=== PATIENT | female | born 1940 | race Caucasian/White ===

== ENCOUNTER 2016-07-28 11:26 | Emergency (ER) | payer MEDICARE ==
[~2016-07-28 11:26] MED LIST: ALEN70TA5 PO; ASPI-482 PO; ASPI81TA9 PO; ATOR20TA PO; ATOR20TA58 PO; CARV3.12 PO; CHOL10003 PO; CHOL2000 PO; CLOP75TA PO; DONE10TA34 PO; DONE10TA7 PO; DULO60CA6 PO; FAMO-63 PO; FAMO20TA5 PO; FERR325T58 PO; LISI2.5T PO; MEMA10TA PO; MEMA28CA PO; METF500T4 PO; MULT-121 PO; MULT-208 PO; MULT1TAB52 PO; OXYC15TA PO
[2016-07-28 12:06] VITALS: BP 146/83
--- NOTE | 2016-07-28 12:21 | PHYS DOC ---
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 States it was not there yesterday. She does not remember trauma. States it is asymptomatic at rest, but it is tender to the touch with achy pain. Their main concern is to make sure it is not shingles. She denies fever or chills, nausea or vomiting, numbness, tingling, weakness. She also notes chronic, unchanged sciatic pain in the left lower extremity that she is just mentioning and does not expect treatment or workup. Review of Systems Review of Systems Constitutional: Denies fever or chills [] Eyes: Denies change in visual acuity, redness, or eye pain [] HENT: Denies nasal congestion or sore throat [] Respiratory: Denies cough or shortness of breath [] Cardiovascular: No additional information not addressed in HPI [] GI: Denies abdominal pain, nausea, vomiting, bloody stools or diarrhea [] : Denies dysuria or hematuria [] Musculoskeletal: Denies back pain or joint pain [] Integument: Denies skin lesions [] Neurologic: Denies headache, focal weakness or sensory changes [] Endocrine: Denies polyuria or polydipsia [] Allergies Allergies Allergies Coded Allergies Type Severity Reaction Last Updated Verified aspirin Adverse Reaction Intermediate Nausea 12/05/15 Yes Physical Exam Physical Exam Constitutional: Well developed, well nourished, no acute distress, non-toxic appearance. [] HENT: Normocephalic, atraumatic, bilateral external ears normal, oropharynx moist, nose normal. [] Eyes: PERRLA, EOMI. [] Neck: Normal range of motion, supple. [] Cardiovascular:Heart rate regular rhythm [] Lungs & Thorax: Bilateral breath sounds clear to auscultation [] Abdomen: soft, no tenderness. [] Skin: Warm, dry, no erythema. Small area of right inner thigh just proximal to knee with cluster of macular lesions approx 2mm each, blanching, total area approx 10mm, slightly tender with no induration/crepitance/fluctuance/warmth [] Back: Normal ROM. [] Extremities: ROM intact, no edema. [] Neurologic: Alert and oriented X3, normal motor function, normal sensory function, no focal deficits noted. [] Psychologic: Affect normal, judgement normal, mood normal. [] Current Patient Data Vital Signs Vital Signs Date Time Temp Pulse Resp B/P Pulse Ox O2 Delivery O2 Flow Rate FiO2 07/28/16 12:06 98.3 80 18 100 Room Air 98.3 Course & Med Decision Making Course & Med Decision Making Discussed symptomatic care and encouraged PCP follow up. Return precautions given. She and understand and agree with plan. Dragon Disclaimer Dragon Disclaimer This electronic medical record was generated, in whole or in part, using a voice recognition dictation system. Departure Departure Impression: Primary Impression: Rash and nonspecific skin eruption Disposition: 01 HOME, SELF-CARE Condition: STABLE Referrals: LILY SAM MD (PCP) Patient Instructions: Rash, [id number] Additional Instructions: Follow up with your primary care doctor. Return for any concerns. Sage PRINGLE MD Jul 28, 2016 12:21
== END 2016-07-28 12:35 | disposition home or self-care (01) ==
LOC: ER 11:26
DX: R21 Rash and other nonspecific skin eruption (principal); I10 Essential (primary) hypertension; Z88.6 Allergy status to analgesic agent
CPT/HCPCS: 99281

== ENCOUNTER → 2016-11-22 | Day surgery (SDC) | payer MEDICARE ==
[~2016-11-22] MED LIST changes: +ASPI-612 PO; -ASPI81TA9 PO; -DONE10TA34 PO; +DONE10TA61 PO; +FERR-26 PO; +GLYCOPYRROLATE 1 MG/5 ML VIAL. ONE; +HYDROmorphone 2 MG/ML VIAL IV PRN; +IV RINGERS,LACTATED 1000ML 1,000 ML IV SCH; +LIDOCAINE 1% 1 ML SYRINGE. ID PRN; +LIDOCAINE 2% PF Vial for OR 5 ML VIAL. ONE; +MORPHINE SULFATE 2 MG/ML DISP.SYRIN. IV PRN; +ONDANSETRON PF 4 MG/2 ML VIAL. IV PRN; +PANT40TA5 PO; +PHENYLEPHRINE in 0.9% NACL PF 1 MG/10 ML DISP.SYRIN. IV ONE; +PROCHLORPERAZINE 10 MG/2 ML VIAL. IV PRN; +PROPOFOL 40 ML IV ONE; +fentaNYL PF VIAL 100 MCG/2 ML VIAL IV PRN
--- NOTE | 2016-11-22 12:38 | PDOC2 ---
GI CONSULT Reason For Consult: CRC screening HPI: HPI: 76 y/o female w/ h/o colon cancer diagnosed in 2016; s/p right colon resection in 11/2015. She presents for 1 year screening colonoscopy as recommended. PMH: PMH: anemia, arthritis, CAD s/p angioplasty/stent, DM, HLD, CO, colon cancer, tonsillectomy, laparoscopic assisted right colon resection with primary anastomosis, repair of cholecystoduodenal fistula, partial cholecystectomy FH: Family History: Cancer, DM, Hypertension Social History: ALCOHOL: none Drugs: None ROS: GEN: Denies fevers, chills, sweats HEENT: Denies blurred vision, sore throat CV: Denies chest pain RESP: Denies shortness of air, cough GI: Per HPI : Denies hematuria, dysuria ENDO: Denies weight changes NEURO: Denies confusion, dizziness MSK: Denies weakness, joint pain/swelling SKIN: Denies jaundice, pruritus Vitals: Vitals: Vital Signs Date Time Temp Pulse Resp B/P (MAP) Pulse Ox O2 Delivery O2 Flow Rate FiO2 11/22/16 11:48 98.8 77 16 99 98.8 Allergies: Coded Allergies: aspirin (Verified Adverse Reaction, Intermediate, Nausea, 11/22/16) Medications: Current Medications Medications (Trade) Dose Ordered Sig/Balaji Route PRN Reason Start Time Stop Time Status Last Admin Dose Admin Ringer's Solution 1,000 ml @ 30 mls/hr Q24H IV 11/22/16 07:00 11/22/16 18:59 11/22/16 11:56 Please see EMR. PE: GEN: NAD HEENT: Atraumatic, PERRL LUNGS: CTAB HEART: S1S2 ABD: NABS, S/ND/NT SKIN: No rashes, no jaundice NEURO/PSYCH: A & O 3 A/P: A/P: CRC screening, h/o colon cancer s/p resection 2016 -- Proceed w/ screening colonoscopy. Additional recommendations pending findings. AKI LENNON Nov 22, 2016 12:38
[2016-11-22 13:15] VITALS: BP 127/84
== END | disposition home or self-care (01) ==
LOC: ENDOS 10:57
PROVIDERS: ATTEND Internal Medicine Gastroenterology
DX: Z08 Encounter for follow-up examination after completed treatment for malignant neoplasm (principal); Z85.038 Personal history of other malignant neoplasm of large intestine; K64.0 First degree hemorrhoids; K57.30 Diverticulosis of large intestine without perforation or abscess without bleeding; E78.00 Pure hypercholesterolemia, unspecified; Z86.69 Personal history of other diseases of the nervous system and sense organs; I25.10 Atherosclerotic heart disease of native coronary artery without angina pectoris; I10 Essential (primary) hypertension; E66.9 Obesity, unspecified; Z68.45 Body mass index [BMI] 70 or greater, adult; K21.9 Gastro-esophageal reflux disease without esophagitis; Z87.39 Personal history of other diseases of the musculoskeletal system and connective tissue; M19.90 Unspecified osteoarthritis, unspecified site; Z86.39 Personal history of other endocrine, nutritional and metabolic disease; E11.9 Type 2 diabetes mellitus without complications; D64.9 Anemia, unspecified; Z79.82 Long term (current) use of aspirin
CPT/HCPCS: 45378; J2370; J2704; J3490

== ENCOUNTER → 2017-04-05 | Outpatient (CLI) | payer MEDICARE ==
[2016-11-22 13:15] VITALS: BP 127/84
[~2017-04-05] MED LIST changes: -GLYCOPYRROLATE 1 MG/5 ML VIAL. ONE; -HYDROmorphone 2 MG/ML VIAL IV PRN; -IV RINGERS,LACTATED 1000ML 1,000 ML IV SCH; -LIDOCAINE 1% 1 ML SYRINGE. ID PRN; -LIDOCAINE 2% PF Vial for OR 5 ML VIAL. ONE; -MORPHINE SULFATE 2 MG/ML DISP.SYRIN. IV PRN; -ONDANSETRON PF 4 MG/2 ML VIAL. IV PRN; -PHENYLEPHRINE in 0.9% NACL PF 1 MG/10 ML DISP.SYRIN. IV ONE; -PROCHLORPERAZINE 10 MG/2 ML VIAL. IV PRN; -PROPOFOL 40 ML IV ONE; -fentaNYL PF VIAL 100 MCG/2 ML VIAL IV PRN
--- NOTE | 2017-04-05 14:33 | CARD ---
APPROVED REPORT EXAM: Two-dimensional and M-mode echocardiogram with Doppler and color Doppler. Other Information Quality : Good INDICATION Cardiac Disease: CAD 2D DIMENSIONS Left Atrium(2D)4.5 (1.6-4.0cm)IVSd0.8 (0.7-1.1cm) Aortic Root(2D)2.7 (2.0-3.7cm)LVDd4.5 (3.9-5.9cm) LVOT Diameter2.0 (1.8-2.4cm)PWd0.8 (0.7-1.1cm) LVDs2.2 (2.5-4.0cm)FS (%) 30.0 % SV74.2 mlLVEF(%)60.0 (>50%) Aortic Valve AoV Peak Rajan.143.6cm/sAoV VTI30.2cm AO Peak GR.8.2mmHgLVOT Peak Rajan.129.3cm/s LVOT VTI 29.94cmAO Mean GR.4mmHg RA (VMAX)2.17fl5PMK (VTI)3.18cm2 Mitral Valve MV E Anugfyco71.7cm/sMV DECEL RSSM682ou MV A Wdombrrf11.1cm/sMV UBM90to E/A Ratio0.9MVA (PHT)3.10cm2 TDI E/Lateral E'12.0 Pulmonary Vein S1 Ikjvpipq34.1cm/sD2 Niynswrx35.1cm/s LEFT VENTRICLE The left ventricle is normal size. There is normal left ventricular wall thickness. The left ventricu lar systolic function is normal and the ejection fraction is within normal range. The Ejection Fracti on is 55-60%. There is normal LV segmental wall motion. Transmitral Doppler flow pattern is Grade I-a bnormal relaxation pattern. RIGHT VENTRICLE The right ventricle is normal size. The right ventricular systolic function is normal. ATRIA The left atrium is mildly dilated. The right atrium size is normal. The interatrial septum is intact with no evidence for an atrial septal defect or patent foramen ovale as noted on 2-D or Doppler imagi ng. AORTIC VALVE The aortic valve is calcified but opens well. Doppler and Color Flow revealed trace aortic regurgitat ion. There is no significant aortic valvular stenosis. MITRAL VALVE The mitral valve is normal in structure and function. There is no evidence of mitral valve prolapse. There is no mitral valve stenosis. Doppler and Color-flow revealed trace to mild mitral regurgitation . TRICUSPID VALVE The tricuspid valve is normal in structure and function. Doppler and Color Flow revealed no tricuspid valve regurgitation noted. There is no tricuspid valve stenosis. PULMONIC VALVE The pulmonary valve is normal in structure and function. Doppler and Color Flow revealed no pulmonic valvular regurgitation. There is no pulmonic valvular stenosis. GREAT VESSELS The aortic root is normal in size. The ascending aorta is normal in size. The IVC is normal in size a nd collapses >50% with inspiration. PERICARDIAL EFFUSION There is no evidence of significant pericardial effusion. Critical Notification Critical Value: No <Conclusion> The left ventricle is normal size. The left ventricular systolic function is normal and the ejection fraction is within normal range. The Ejection Fraction is 55-60%. There is no significant aortic valvular stenosis. Doppler and Color Flow revealed trace aortic regurgitation. Doppler and Color-flow revealed trace to mild mitral regurgitation. Doppler and Color Flow revealed no tricuspid valve regurgitation noted.
== END | disposition home or self-care (01) ==
LOC: ECHO 12:37
PROVIDERS: ATTEND Internal Medicine Cardiovascular Disease
DX: I25.10 Atherosclerotic heart disease of native coronary artery without angina pectoris (principal); I34.0 Nonrheumatic mitral (valve) insufficiency
CPT/HCPCS: 93306

== ENCOUNTER → 2018-10-29 | Outpatient (CLI) | payer MEDICARE ==
[2016-11-22 13:15] VITALS: BP 127/84
[~2018-10-29] MED LIST changes: -ALEN70TA5 PO; +ALEN70TA6 PO; -FERR-26 PO; +FERR325T14 PO; +METF500T16 PO; -METF500T4 PO; +REGADENOSON 0.4 MG/5 ML DISP.SYRIN. IV ONE
--- NOTE | 2018-10-29 11:05 | CARD ---
MR#: [id number] Date of Study: 10/29/2018 Ordering Physician: BAKARI EPPS, Referring Physician: BAKARI EPPS Tech: Estefany Melchor RDCS APPROVED REPORT EXAM: Two-dimensional and M-mode echocardiogram with Doppler and color Doppler. Other Information Quality : AverageHR: 66bpm Rhythm : NSR INDICATION CAD 2D DIMENSIONS RVDd2.9 (2.9-3.5cm)Left Atrium(2D)4.0 (1.6-4.0cm) IVSd1.1 (0.7-1.1cm)Aortic Root(2D)2.9 (2.0-3.7cm) LVDd3.0 (3.9-5.9cm)LVOT Diameter1.8 (1.8-2.4cm) PWd1.0 (0.7-1.1cm)LVDs2.0 (2.5-4.0cm) FS (%) 34.1 %SV21.9 ml LVEF(%)64.7 (>50%) M-Mode DIMENSIONS Left Atrium(MM)4.03 (2.5-4.0cm)Aortic Root3.47 (2.2-3.7cm) Aortic Valve AoV Peak Rajan.116.3cm/sAoV VTI29.1cm AO Peak GR.5.4mmHgLVOT Peak Rajan.116.7cm/s AO Mean GR.3mmHgAVA (VMAX)2.58cm2 RA (VTI)2.60cm2 Mitral Valve MV E Yhonaaek98.2cm/sMV DECEL HVUV780hu MV A Kmwydepq39.3cm/sE/A Ratio0.7 Pulmonary Valve PV Peak Ghhmjpvq66.0cm/s LEFT VENTRICLE The left ventricle cavity is small. There is normal left ventricular wall thickness. The left ventric ular systolic function is normal. The Ejection Fraction is 60-65%. There is normal LV segmental wall motion. Transmitral Doppler flow pattern is Grade I-abnormal relaxation pattern. RIGHT VENTRICLE The right ventricle is normal size. There is normal right ventricular wall thickness. The right ventr icular systolic function is normal. ATRIA The left atrium is mildly dilated. The right atrium size is normal. The interatrial septum is intact with no evidence for an atrial septal defect or patent foramen ovale as noted on 2-D or Doppler imagi ng. AORTIC VALVE The aortic valve is normal in structure and function. The aortic valve is trileaflet. Doppler and Col or Flow revealed no significant aortic regurgitation. There is no significant aortic valvular stenosi s. MITRAL VALVE The mitral valve is normal in structure and function. There is no evidence of mitral valve prolapse. There is no mitral valve stenosis. Doppler and Color Flow revealed no mitral valve regurgitation note d. TRICUSPID VALVE The tricuspid valve is normal in structure and function. Doppler and Color Flow revealed trace tricus pid valve regurgitation. There is no tricuspid valve prolapse or vegetation. There is no tricuspid va lve stenosis. PULMONIC VALVE The pulmonic valve is not well visualized. GREAT VESSELS The aortic root is normal in size. The ascending aorta is normal in size. The IVC is normal in size a nd collapses >50% with inspiration. PERICARDIAL EFFUSION There is no evidence of significant pericardial effusion. Critical Notification Critical Value: No <Conclusion> The left ventricular systolic function is normal. The Ejection Fraction is 60-65%. There is normal LV segmental wall motion. Transmitral Doppler flow pattern is Grade I-abnormal relaxation pattern. Trace tricuspid valve regurgitation. There is no evidence of significant pericardial effusion. Signed by : Bakari Epps, Electronically Approved : 10/29/2018 11:05:38
--- NOTE | 2018-10-29 13:09 | RAD ---
MR#: [id number] Date of Study: 10/29/2018 Ordering Physician: BAKARI METCALF Referring Physician: LOLA VILLANUEVA Tech: JUAN Chen APPROVED REPORT Test Type: Pharmacological Stress Nurse/Tech: Summer Fragoso RN Test Indications: CAD Cardiac History: Hypertension, Diabetes,stent 2 years ago Medications: See Electronic Medical Record Medical History: See Electronic Medical Record Resting ECG: SR with BBB Resting Heart Rate: 71 bpm Resting Blood Pressure: 144/63mmHg Pretest Chest Pain: No chest pain Nurse/Tech Notes S1,S2 and lungs diminished in the bases. Consent: The procedure was explained to the patient in lay terms. Informed consent was witnessed. Steve eout was entered into [employer]. History and Stress Test performed by RT Cynthia (R) (N) Pharm. Details Pharmacologic stress testing was performed using 0.4mg per 5ml of regadenoson given intravenously ove r 7-10 seconds. Stress Symptoms Dyspnea POST EXERCISE Reason for Termination: Infusion complete Target HR: Yes Max HR: 126 bpm Max Blood Pressure: 143/45mmHg Blood Pressure response to exercise: Normal blood pressure response during stress. Heart Rate response to exercise: WNL Chest Pain: No. Arrhythmia: No. ST Change: No. INTERPRETATION Stress EKG Conclusion: Baseline EKG showed sinus rhythm with old septal CA. No ischemic changes at p eak stress. No arrhythmias. Imaging Protocol IMAGE PROTOCOL: Rest Tc-99m/stress Tc-99m 1 day Rest: Stress: Viability: Radiopharm.Tc99m NncqxkguwCd99c Sestamibi Dose10.2mCi 33mCi Duration 15min. 13min. Img Date 10/29/2018 10/29/2018 Inj-Img Shui66yej. 60min. Rest Admin Site:IV - Left AntecubitalAdministrator:RT Chong MarieR)(N) Stress Admin Site: IV - Left AntecubitalAdministrator: JUAN Chen STRESS DATA End Diast. Vol.57.0mlLVEDV index BSA36.0ml End Syst. Vol.10.0mlLVESV index BSA6.0ml Myocardial Ewqi465.0gEject. Padnisat37.0% Stress Scores Regional WT0.00Summed WT18.00 Regional WM0.00Summed WM0.00 LV Perfusion Scintigraphic images showed small to moderate predominantly fixed defect involving the anterior wall consistent with previous myocardial infarction with very small amount of reversibility consistent wit h arvind-infarct ischemia. Wall Motion Normal left ventricle systolic function with ejection fraction calculated at 82%. LV Perf. Quant 17 Seg. SSS6.00 17 Seg. SRS5.00 17 Seg. SDS1.00 Stress Defect Extent (% LAD)33.80Rest Defect Extent (% LAD)24.40Rev. Defect Extent (% LAD)8.10 Stress Defect Extent (% LCX) 0.00Rest Defect Extent (% LCX)0.00Rev. Defect Extent (% LCX)0.00 Stress Defect Extent (% RCA)0.00Rest Defect Extent (% RCA)0.00Rev. Defect Extent (% RCA)0.00 Stress Defect Extent (% RADHA)12.20Rest Defect Extent (% RADHA)8.50Rev. Defect Extent (% RADHA)2.80 Conclusion 1. Regadenoson cardioisotope stress test showed zbrhi-uy-ldcncosf anterior wall infarct with very sma ll amount of arvind-infarct ischemia. 2. Normal left ventricular systolic function with ejection fraction calculated at 82%. 3. Low risk for cardiac events. Signed by : Bakari Metcalf, Electronically Approved : 10/29/2018 13:08:52
== END | disposition home or self-care (01) ==
LOC: NM 09:10
PROVIDERS: ATTEND Internal Medicine Cardiovascular Disease
DX: I21.09 ST elevation (STEMI) myocardial infarction involving other coronary artery of anterior wall (principal); I25.89 Other forms of chronic ischemic heart disease
CPT/HCPCS: 78452; 93017; 93306; A9500; J2785

== ENCOUNTER 2018-11-22 08:41 | Emergency (ER) | payer MEDICARE ==
[~2018-11-22] VITALS: Ht 157.5 cm; Wt 63.5 kg
[~2018-11-22 08:41] MED LIST changes: -PANT40TA5 PO; +PANT40TA77 PO; -REGADENOSON 0.4 MG/5 ML DISP.SYRIN. IV ONE
[2018-11-22] MEDS ORDERED: ACETAMINOPHEN 500 MG TABLET PO ONE (09:15)
--- NOTE | 2018-11-22 09:21 | PHYS DOC ---
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 Patient with history of progressive dementia. She is alert to self and place only. She is unable to name her spouse at bedside. Spouse at bedside states that this is the patient's baseline mental status. Patient with unwitnessed fall but spouse states that he was already awake and did not hear anything and suspect she had a very slow/soft fall. Patient was on the ground for approximately 20 minutes before paramedics could arrive to help with left assist. Patient was ambulatory on scene prior to arrival the neighbor express concern that she should be evaluated. Patient reports low back pain. Spouse reports the patient has chronic back pain. Patient is unable to rank pain on scale of 1-10. Patient is supposed to walk with a walker but is noncompliant secondary to her dementia. Review of Systems Review of Systems Unable to obtain secondary to dementia Current Medications Current Medications Current Medications Medications (Trade) Dose Ordered Sig/Balaji Start Time Stop Time Status Last Admin Dose Admin Acetaminophen (Tylenol) 1,000 mg 1X ONCE 11/22/18 09:15 11/22/18 09:16 DC 11/22/18 09:20 1,000 MG Allergies Allergies Allergies Coded Allergies Type Severity Reaction Last Updated Verified aspirin Adverse Reaction Intermediate Nausea 11/22/16 Yes Physical Exam Physical Exam Constitutional: Well developed, well nourished, frail, appears stated age HENT: Normocephalic, atraumatic, Eyes: PERRLA, EOMI, Neck: Normal range of motion, no midline tenderness, Cardiovascular:Heart rate regular rhythm, no murmur [] Lungs & Thorax: Bilateral breath sounds clear to auscultation [] Abdomen: Bowel sounds normal, soft, no tenderness, no masses, no pulsatile masses. [] Skin: Warm, dry, no erythema, no rash. [] Back: No midline tenderness, no reproducible pain on the back. Patient able to sit up from laying in the bed without assistance. Extremities: Pelvis stable on rocking. No bony tenderness to pelvis. Intact passive range of motion of bilateral hips/knees/ankles. Bilateral DP pulses +2 out of 4. Sensation intact in lower extremities. No obvious deformities. Neurologic: Alert and oriented X 2, no focal deficits noted. Pleasantly demented, conversational with clear speech but very confused.[] Psychologic: Affect normal, Current Patient Data Vital Signs Vital Signs Date Time Temp Pulse Resp B/P (MAP) Pulse Ox O2 Delivery O2 Flow Rate FiO2 11/22/18 10:21 77 91 11/22/18 08:51 98.3 14 150/77 (101) Room Air 98.3 Lab Values Laboratory Tests Test 11/22/18 08:58 Glucose (Fingerstick) 154 mg/dL (70-99) H EKG EKG [] Radiology/Procedures Radiology/Procedures Lumbar XR IMPRESSION: 1. No fracture throughout. 2. Degenerative disc disease is moderate at L3-4 and mild elsewhere. 3. Mild bilateral hip osteoarthritis. Electronically signed by: Ayanna Rodriguez MD (11/22/2018 9:58 AM) [facility] [] Left hip/Pelvis IMPRESSION: 1. No fracture throughout. 2. Degenerative disc disease is moderate at L3-4 and mild elsewhere. 3. Mild bilateral hip osteoarthritis. Electronically signed by: Ayanna Rodriguez MD (11/22/2018 9:58 AM) [facility] Course & Med Decision Making Course & Med Decision Making Pertinent Labs and Imaging studies reviewed. (See chart for details) 1042: Pain improved with Tylenol. X-rays no acute fractures. Patient did not have any midline spinal tenderness. Patient ambulatory with walker ED without difficulty. Family comfortable with discharge. Advised Tylenol for continued muscle soreness related to fall. ER return precautions given. Family and caregiver at bedside verbalized understanding. All questions answered. Dragon Disclaimer Dragon Disclaimer This electronic medical record was generated, in whole or in part, using a voice recognition dictation system. Departure Departure Impression: Primary Impression: Back pain Additional Impressions: Lumbar strain Strain of left hip Disposition: HOME, SELF-CARE Condition: IMPROVED Referrals: LILY SAM MD (PCP) Patient Instructions: Back Pain, Adult Additional Instructions: Thank you for coming to [facility]. Please read the attached handouts. Please follow-up with your primary care physician. Please give Tylenol 1000 mg every 6 hours for pain as needed. Do not exceed 4000 mg in a 24-hour period. Return to the ER if your symptoms worsen or you have any other concerns. Problem Qualifiers KEITHLY,REY T DO Nov 22, 2018 09:21
--- NOTE | 2018-11-22 10:01 | RAD ---
EXAM: 1. Lumbar spine 5 views. 2. Left hip 2 views with frontal pelvis. HISTORY: Trauma. COMPARISON: None. FINDINGS: There is a mild lumbar levocurvature. Osteopenia appears moderate. No fractures are identified. Degenerative disc disease is moderate at L3-4 and mild at other lumbar levels. Facet osteoarthritis appears at least moderate from L3 through S1. No fractures are appreciated throughout the pelvis or either proximal femur. Small osteophytes indicate mild bilateral hip osteoarthritis. There is calcific tendinitis at the left hamstring origin. Atherosclerotic calcifications are noted. Calcifications in the right hemipelvis likely reflect a degenerated uterine fibroid. IMPRESSION: 1. No fracture throughout. 2. Degenerative disc disease is moderate at L3-4 and mild elsewhere. 3. Mild bilateral hip osteoarthritis. Electronically signed by: Ayanna Rodriguez MD (11/22/2018 9:58 AM) [facility]
[2018-11-22 10:21] VITALS: BP 140/68
== END 2018-11-22 10:50 | disposition home or self-care (01) ==
LOC: ER 08:41
DX: S76.012A Strain of muscle, fascia and tendon of left hip, initial encounter (principal); S39.012A Strain of muscle, fascia and tendon of lower back, initial encounter; M16.0 Bilateral primary osteoarthritis of hip; M51.36 Other intervertebral disc degeneration, lumbar region; I10 Essential (primary) hypertension; G89.29 Other chronic pain; Z98.890 Other specified postprocedural states; Z88.6 Allergy status to analgesic agent; W18.39XA Other fall on same level, initial encounter; Y93.89 Activity, other specified; Y92.092 Bedroom in other non-institutional residence as the place of occurrence of the external cause; Y99.8 Other external cause status
CPT/HCPCS: 72110; 73502; 82962; 99285-25

== ENCOUNTER → 2019-11-11 | Outpatient (CLI) | payer MEDICARE ==
[~2019-11-11] MED LIST changes: +MULT-445 PO; -MULT1TAB52 PO; -OXYC15TA PO; +OXYC15TA3 PO
--- NOTE | 2019-11-11 16:28 | CARD ---
MR#: [id number] Date of Study: 11/11/2019 Ordering Physician: BAKARI EPPS, Referring Physician: BAKARI EPPS, Tech: Brandi Candelario APPROVED REPORT EXAM: Two-dimensional and M-mode echocardiogram with Doppler and color Doppler. Other Information Quality : AverageHR: 77bpm Technically limited study due to Alzheimers INDICATION Cardiac Disease: CAD RISK FACTORS Diabetes 2D DIMENSIONS Left Atrium(2D)3.5 (1.6-4.0cm)IVSd0.9 (0.7-1.1cm) Aortic Root(2D)2.9 (2.0-3.7cm)LVDd3.7 (3.9-5.9cm) LVOT Diameter2.0 (1.8-2.4cm)PWd0.9 (0.7-1.1cm) LVDs2.4 (2.5-4.0cm)FS (%) 34.0 % SV37.0 mlLVEF(%)63.7 (>50%) Aortic Valve AoV Peak Rajan.125.6cm/sAoV VTI26.2cm AO Peak GR.6.3mmHgLVOT Peak Rajan.104.8cm/s LVOT VTI 19.90cmAO Mean GR.4mmHg RA (VMAX)1.90ol1SVP (VTI)2.32cm2 Mitral Valve MV E Ofsktsrp06.4cm/sMV DECEL [id number] MV A Olmdqbcw663.5cm/sMV E Mean Gr.2mmHg MV PDY45nqQ/A Ratio0.6 MVA (PHT)3.36cm2 TDI E/Lateral E'8.8E/Medial E'12.0 Tricuspid Valve TR P. Cqhpwzqq264bs/sRAP ONTRNYZF3auFu TR Peak Gr.71atLvIOBB02fcIk Pulmonary Vein S1 Ckmquwff48.3cm/sD2 Zjpmyzdt48.8cm/s PVa vwdwdhmg962flal LEFT VENTRICLE The left ventricle is normal size. There is normal left ventricular wall thickness. The left ventricu lar systolic function is normal. The Ejection Fraction is 60-65%. There is normal LV segmental wall m otion. Transmitral Doppler flow pattern is Grade I-abnormal relaxation pattern. RIGHT VENTRICLE The right ventricle is normal size. There is normal right ventricular wall thickness. The right ventr icular systolic function is normal. ATRIA The left atrium size is normal. The right atrium size is normal. The interatrial septum is intact wit h no evidence for an atrial septal defect or patent foramen ovale as noted on 2-D or Doppler imaging. AORTIC VALVE The aortic valve is thickened but opens well. Doppler and Color Flow revealed trace aortic regurgitat ion. There is no significant aortic valvular stenosis. MITRAL VALVE The mitral valve is normal in structure and function. There is no evidence of mitral valve prolapse. There is no mitral valve stenosis. Doppler and Color-flow revealed trace mitral regurgitation. TRICUSPID VALVE The tricuspid valve is normal in structure and function. Doppler and Color Flow revealed trace tricus pid valve regurgitation. There is no tricuspid valve stenosis. PULMONIC VALVE The pulmonic valve is not well visualized. Doppler and Color Flow revealed trace pulmonic valvular re gurgitation. GREAT VESSELS The aortic root is normal in size. The IVC is normal in size and collapses >50% with inspiration. PERICARDIAL EFFUSION There is no evidence of significant pericardial effusion. Critical Notification Critical Value: No <Conclusion> The left ventricular systolic function is normal. The Ejection Fraction is 60-65%. There is normal LV segmental wall motion. Transmitral Doppler flow pattern is Grade I-abnormal relaxation pattern. Trace mitral regurgitation. Trace tricuspid valve regurgitation. There is no evidence of significant pericardial effusion. Signed by : Bakari Epps, Electronically Approved : 11/11/2019 16:27:53
== END ==
LOC: ECHO 14:41
PROVIDERS: ATTEND Internal Medicine Cardiovascular Disease
DX: I25.10 Atherosclerotic heart disease of native coronary artery without angina pectoris (principal)
CPT/HCPCS: 93306

== ENCOUNTER 2020-01-29 06:53 | Emergency (ER) | payer MEDICARE ==
[~2020-01-29] VITALS: Ht 165.1 cm; Wt 54.0 kg
[~2020-01-29 06:53] MED LIST changes: -ASPI-612 PO; +ASPI-886 PO
--- NOTE | 2020-01-29 07:11 | PHYS DOC ---
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 Patient is accompanied by her who provides history due to patient's Alzheimer's dementia. states that she fell at approximately 0600 hrs. after getting up out of bed without using her walker. The heard a loud noise, came into their living room and found her on the ground laying on her left side. states that she was complaining of left arm, neck, and back pain. states that she has a propensity to fall due to her dementia. Patient is on aspirin 81 mg. Patient is currently on TMP-SMX for a perianal abscess that was drained Saturday by per PCP. History of present illness limited secondary to dementia. Review of Systems: Review of Systems: Review of systems limited secondary to patient's Alzheimer's dementia. Allergies: Allergies: Allergies Coded Allergies Type Severity Reaction Last Updated Verified aspirin Adverse Reaction Intermediate Nausea 11/22/16 Yes Physical Exam: PE: Constitutional: Frail, no acute distress, non-toxic appearance HENT: Normocephalic, atraumatic Eyes: PERRL, EOMI, conjunctiva normal, no discharge Neck: C-collar currently in place, no step-off noted, supple Lungs & Thorax: Bilateral breath sounds clear to auscultation, no wheezing, mild tenderness to palpation of left posterior rib 2 through 4, no crepitance Abdomen: Soft, no tenderness Skin: Warm, dry, no erythema, no rash, examination of hx perianal abscess shows a well-healing I&D wound that was nontender, patient's states that it appears to have gotten smaller; 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 Back: No bony step-offs or midline tenderness to palpation of lumbar and thoracic spine, Extremities: No tenderness, ROM intact, no edema Neurologic: Alert and only oriented to person, full motor and sensory testing is limited by patient's Alzheimer's dementia but grossly normal in upper and lower extremities, no focal deficits noted Psychologic: Cooperative, memory impairment EKG: EK01/29/2020 at 0705 hours - heart rate 86 bpm, normal sinus rhythm, QRS 82 ms, QT/QTc 380/458 ms Radiology/Procedures: Radiology/Procedures: PROCEDURE: PORTABLE CHEST 1V PORTABLE CHEST 1V INDICATION: altered mental status, fall . COMPARISON STUDY: None. FINDINGS: Lungs: Normal lung volume. No pulmonary mass or consolidation. The tracheobronchial tree and hilar structures are normal. Pleura: No pleural effusion or pneumothorax. Heart and Mediastinum: The cardiomediastinal silhouette is normal. Mild tortuosity of the thoracic aorta. IMPRESSION: No acute cardiopulmonary process. Electronically signed by: Figueroa Yousif MD (01/29/2020 7:34 AM) [id number] PROCEDURE: CT HEAD AND CERVICAL SPINE WO CT HEAD AND CERVICAL SPINE WO Date: 01/29/2020 7:08 AM Clinical Indication: pain s/p fall, dementia Comparison: None. Technique: 5 mm axial tomographic images were obtained of the head without contrast. These were viewed on brain and bone windows. Noncontrast CT of the cervical spine was performed. Sagittal and coronal reformats were performed and evaluated. One or more of the following dose reduction techniques were utilized: Automated exposure control (AEC), Adjustment of mA and/or kV according to patient size, Use of iterative reconstruction technique such as ASiR, CT scan done according to ALARA and image gently/image wisely HEAD FINDINGS: Mild generalized cerebral and cerebellar volume loss. Mild nonspecific periventricular hypoattenuation, most commonly seen with chronic small vessel ischemic disease. No intra- or extra-axial mass or fluid collection. No acute hemorrhage. The ventricles are normal in size, shape, and morphology. The sanchez-white matter junction is normal. The basilar cisterns are patent. Opacification of the left maxillary, anterior ethmoid, and frontal sinuses. The visualized portions of the orbits and globes are normal. The mastoid air cells are clear. No aggressive osseous lesion or fracture. CERVICAL SPINE FINDINGS: The cervical spine is normally aligned. No acute fracture. No aggressive lytic or blastic osseous lesions. Mild to moderate multilevel degenerative disc space height loss. Multilevel mild spinal canal stenosis secondary to disc protrusions and marginal osteophytes. Multilevel mild neuroforaminal narrowing secondary to uncovertebral arthrosis. Multilevel mild facet arthrosis. The thyroid gland is normal. No cervical lymphadenopathy. Bilateral carotid atherosclerosis. The visualized aerodigestive tract is normal. The visualized portions of the lungs are clear. IMPRESSION: 1. No acute intracranial process. 2. No acute cervical spine fracture. Electronically signed by: Figueroa Yousif MD (01/29/2020 7:28 AM) [id number] Course & Med Decision Making: Course & Med Decision Making Patient is a 79-year-old female brought to the ED by EMS due to fall at home. Patient has a history of Alzheimer's dementia and is accompanied by her who provided the HPI. Patient's physical exam is unremarkable and shows no signs of trauma, bony injury, or significant pain. There was mild tenderness to palpation of left posterior thoracic ribs 2 through 4. Patient's labs are unremarkable except for a low magnesium. Chest x-ray and head and neck CT are unremarkable for any traumatic injuries or acute changes. Magnesium replacement provided.. Patient stable for discharge with outpatient follow-up with PCP. Discussed findings and plan with spouse, who acknowledges understanding and agreement. Sonja Disclaimer: Sonja Disclaimer: This electronic medical record was generated, in whole or in part, using a voice recognition dictation system. Departure Departure Impression: Primary Impression: Fall Qualified Codes: W19.XXXA - Unspecified fall, initial encounter Additional Impressions: Hypomagnesemia History of dementia Disposition: HOME, SELF-CARE Condition: STABLE Referrals: LILY SAM MD (PCP) Patient Instructions: Dementia, [id number], Fall Prevention and Home Safety, [id number], Hypomagnesemia Additional Instructions: Please follow closely with your doctor to have your magnesium level rechecked. Justicifation of Admission Dx: Justifications for Admission: Justification of Admission Dx: N/A JOSE ELIAS HENDRICKS DO Jan 29, 2020 07:10
[2020-01-29 07:17] LABS: BASO % 1 % (0-3); EOS # 0.1 x10^3/uL (0.0-0.7); EOS % 2 % (0-3); HEMATOCRIT 40.4 % (36.0-47.0); HEMOGLOBIN 13.6 g/dL (12.0-15.5); LYMPH # 1.3 x10^3/uL (1.0-4.8); LYMPH % 30 % (24-48); MEAN CORPUSCULAR HEMOGLOBIN 31 pg (25-35); MEAN CORPUSCULAR HGB CONC 34 g/dL (31-37); MEAN CORPUSCULAR VOLUME 93 fL (79-100); MONO # 0.4 x10^3/uL (0.0-1.1); MONO % 9 % (0-9); NEUT # 2.7 x10^3/uL (1.8-7.7); NEUT % 59 % (31-73); PLATELET COUNT 169 x10^3/uL (140-400); RED BLOOD COUNT 4.34 x10^6/uL (3.50-5.40); RED CELL DISTRIBUTION WIDTH 13.1 % (11.5-14.5); WHITE BLOOD COUNT 4.5 x10^3/uL (4.0-11.0)
--- NOTE | 2020-01-29 07:17 | EKG ---
[facility] [address] [place] [address] Test Date: 2020-01-29 Test Time: 07:05:06 Pat Name: LAUREN SALDAÑA Department: Room: Gender: F Project Internship: CARL : 1940 Requested By: JOSE ELIAS HENDRICKS Order Number: [id number] Reading MD: Measurements Intervals [place] Rate: 86 P: 34 GA: 158 QRS: -27 QRSD: 82 T: 50 QT: 380 QTc: 458 Interpretive Statements SINUS RHYTHM LEFTWARD AXIS QRS(T) CONTOUR ABNORMALITY CONSIDER ANTEROSEPTAL MYOCARDIAL DAMAGE POSSIBLY ABNORMAL ECG RI6.02 No previous ECG available for comparison
[2020-01-29 07:26] LABS: PROTHROMBIN TIME PATIENT 12.3 SEC (11.7-14.0)
--- NOTE | 2020-01-29 07:31 | RAD ---
CT HEAD AND CERVICAL SPINE WO Date: 01/29/2020 7:08 AM Clinical Indication: pain s/p fall, dementia Comparison: None. Technique: 5 mm axial tomographic images were obtained of the head without contrast. These were viewed on brain and bone windows. Noncontrast CT of the cervical spine was performed. Sagittal and coronal reformats were performed and evaluated. One or more of the following dose reduction techniques were utilized: Automated exposure control (AEC), Adjustment of mA and/or kV according to patient size, Use of iterative reconstruction technique such as ASiR, CT scan done according to ALARA and image gently/image wisely HEAD FINDINGS: Mild generalized cerebral and cerebellar volume loss. Mild nonspecific periventricular hypoattenuation, most commonly seen with chronic small vessel ischemic disease. No intra- or extra-axial mass or fluid collection. No acute hemorrhage. The ventricles are normal in size, shape, and morphology. The sanchez-white matter junction is normal. The basilar cisterns are patent. Opacification of the left maxillary, anterior ethmoid, and frontal sinuses. The visualized portions of the orbits and globes are normal. The mastoid air cells are clear. No aggressive osseous lesion or fracture. CERVICAL SPINE FINDINGS: The cervical spine is normally aligned. No acute fracture. No aggressive lytic or blastic osseous lesions. Mild to moderate multilevel degenerative disc space height loss. Multilevel mild spinal canal stenosis secondary to disc protrusions and marginal osteophytes. Multilevel mild neuroforaminal narrowing secondary to uncovertebral arthrosis. Multilevel mild facet arthrosis. The thyroid gland is normal. No cervical lymphadenopathy. Bilateral carotid atherosclerosis. The visualized aerodigestive tract is normal. The visualized portions of the lungs are clear. IMPRESSION: 1. No acute intracranial process. 2. No acute cervical spine fracture. Electronically signed by: Figueroa Yousif MD (01/29/2020 7:28 AM) [id number]
[2020-01-29 07:35] LABS: CALCIUM 8.5 mg/dL (8.5-10.1); GFR 53.5
--- NOTE | 2020-01-29 07:36 | RAD ---
PORTABLE CHEST 1V INDICATION: altered mental status, fall . COMPARISON STUDY: None. FINDINGS: Lungs: Normal lung volume. No pulmonary mass or consolidation. The tracheobronchial tree and hilar structures are normal. Pleura: No pleural effusion or pneumothorax. Heart and Mediastinum: The cardiomediastinal silhouette is normal. Mild tortuosity of the thoracic aorta. IMPRESSION: No acute cardiopulmonary process. Electronically signed by: Figueroa Yousif MD (01/29/2020 7:34 AM) [id number]
[2020-01-29 07:41] LABS: ALBUMIN 3.1 g/dL (3.4-5.0); MAGNESIUM 1.3 mg/dL (1.8-2.4); TOTAL BILIRUBIN 0.3 mg/dL (0.2-1.0); TOTAL PROTEIN 6.1 g/dL (6.4-8.2)
[2020-01-29 07:48] LABS: BILIRUBIN,URINE NEGATIVE (NEG); CLARITY,URINE CLEAR; COLOR,URINE YELLOW; NITRITE,URINE NEGATIVE (NEG); PH,URINE 7.5 (<5.0-8.0); PROTEIN,URINE NEGATIVE (NEG-TRACE); UROBILINOGEN,URINE 0.2 mg/dL (0.2 mg/dL)
[2020-01-29 07:55] LABS: CREATINE KINASE 30 U/L (26-192)
[2020-01-29 07:57] LABS: BACTERIA,URINE 0 /HPF (0-FEW); RBC,URINE 0 /HPF (0-2); SQUAMOUS EPITHELIAL CELL,UR OCC /LPF; WBC,URINE OCC /HPF (0-4)
[2020-01-29 07:59] VITALS: BP 165/89
[2020-01-29] MEDS ORDERED: MAGNESIUM SULFATE 2GM 50 ML IV ONE (08:00)
[2020-01-29] MEDS ORDERED: MAGNESIUM CHLORIDE ER 64 MG TABLET.ER PO ONE (08:30)
== END 2020-01-29 08:37 | disposition home or self-care (01) ==
LOC: ER 06:53
DX: G89.11 Acute pain due to trauma (principal); M54.5 Low back pain; M54.2 Cervicalgia; E83.42 Hypomagnesemia; E11.9 Type 2 diabetes mellitus without complications; I10 Essential (primary) hypertension; I25.2 Old myocardial infarction; F03.90 Unspecified dementia, unspecified severity, without behavioral disturbance, psychotic disturbance, mood disturbance, and anxiety; Z85.9 Personal history of malignant neoplasm, unspecified; Z88.6 Allergy status to analgesic agent; W18.39XA Other fall on same level, initial encounter; Y93.89 Activity, other specified; Y92.89 Other specified places as the place of occurrence of the external cause; Y99.8 Other external cause status
CPT/HCPCS: 36415; 70450; 71045; 72125; 80053; 81001; 82553; 83605; 83735; 83880; 84484; 85025; 85610; 85730; 93005; 99285

== ENCOUNTER 2020-10-09 14:59 | Emergency (ER) | payer MEDICARE ==
[~2020-10-09] VITALS: Ht 162.6 cm; Wt 54.5 kg
[~2020-10-09 14:59] MED LIST changes: -ALEN70TA6 PO; +ALEN70TA71 PO
--- NOTE | 2020-10-09 15:54 | ED.ADGEN ---
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 Patient's states that she was walking on a carpeted floor in their home using a walker when he heard the patient fall. Patient complains of neck, left shoulder, left upper arm pain after the fall. denies any loss of consciousness, nausea, vomiting, decreased mental status, complaints of chest pain, abdominal pain, or shortness of breath. He states the patient has a history of dementia and this is her normal mentation. HPI is limited due to patient's history of Alzheimer's. Patient was placed in a c-collar by EMS prior to arrival. Review of Systems: Review of Systems: Complete ROS is negative unless otherwise noted in HPI. Allergies: Allergies: Allergies Coded Allergies Type Severity Reaction Last Updated Verified aspirin Adverse Reaction Intermediate Nausea 11/22/16 Yes Physical Exam: PE: See Above Constitutional: Well developed, well nourished, no acute distress, non-toxic appearance. [] HENT: Normocephalic, atraumatic, bilateral external ears normal, oropharynx moist, no oral exudates, nose normal. [] Eyes: PERRLA, EOMI, conjunctiva normal, no discharge. [] Neck: Normal range of motion, no tenderness, supple, no stridor. [] Cardiovascular:Heart rate regular rhythm, no murmur [] Lungs & Thorax: Bilateral breath sounds clear to auscultation [] Abdomen: Bowel sounds normal, soft, no tenderness, no masses, no pulsatile masses. [] Skin: Warm, dry, no erythema, no rash. [] Back: No tenderness, no CVA tenderness. [] Extremities: No tenderness, no cyanosis, no clubbing, ROM intact, no edema. [] Neurologic: Alert and oriented X 3, normal motor function, normal sensory function, no focal deficits noted. [] Psychologic: Affect normal, judgement normal, mood normal. [] Current Patient Data: Labs: Laboratory Tests Test 10/09/20 16:00 10/09/20 16:26 White Blood Count 5.0 x10^3/uL (4.0-11.0) Red Blood Count 4.27 x10^6/uL (3.50-5.40) Hemoglobin 13.4 g/dL (12.0-15.5) Hematocrit 40.0 % (36.0-47.0) Mean Corpuscular Volume 94 fL (79-100) Mean Corpuscular Hemoglobin 31 pg (25-35) Mean Corpuscular Hemoglobin Concent 34 g/dL (31-37) Red Cell Distribution Width 12.8 % (11.5-14.5) Platelet Count 138 x10^3/uL (140-400) L Neutrophils (%) (Auto) 72 % (31-73) Lymphocytes (%) (Auto) 20 % (24-48) L Monocytes (%) (Auto) 7 % (0-9) Eosinophils (%) (Auto) 1 % (0-3) Basophils (%) (Auto) 1 % (0-3) Neutrophils # (Auto) 3.6 x10^3/uL (1.8-7.7) Lymphocytes # (Auto) 1.0 x10^3/uL (1.0-4.8) Monocytes # (Auto) 0.4 x10^3/uL (0.0-1.1) Eosinophils # (Auto) 0.0 x10^3/uL (0.0-0.7) Basophils # (Auto) 0.0 x10^3/uL (0.0-0.2) Sodium Level 145 mmol/L (136-145) Potassium Level 4.1 mmol/L (3.5-5.1) Chloride Level 105 mmol/L (98-107) Carbon Dioxide Level 32 mmol/L (21-32) Anion Gap 8 (6-14) Blood Urea Nitrogen 18 mg/dL (7-20) Creatinine 0.7 mg/dL (0.6-1.0) Estimated GFR (Cockcroft-Gault) 80.7 BUN/Creatinine Ratio 26 (6-20) H Glucose Level 179 mg/dL (70-99) H Calcium Level 8.8 mg/dL (8.5-10.1) Magnesium Level 1.0 mg/dL (1.8-2.4) L Total Bilirubin 0.3 mg/dL (0.2-1.0) Aspartate Amino Transferase (AST) 11 U/L (15-37) L Alanine Aminotransferase (ALT) 19 U/L (14-59) Alkaline Phosphatase 35 U/L (46-116) L Creatine Kinase 45 U/L (26-192) Creatine Kinase MB (Mass) 1.5 ng/mL (0.0-3.6) Creatine Kinase MB Relative Index % (0-4) Troponin I Quantitative < 0.017 ng/mL (0.000-0.055) Total Protein 5.8 g/dL (6.4-8.2) L Albumin 3.3 g/dL (3.4-5.0) L Albumin/Globulin Ratio 1.3 (1.0-1.7) Laboratory Tests 10/09/20 16:00 Laboratory Tests 10/09/20 16:26 Vital Signs: Vital Signs Date Time Temp Pulse Resp B/P (MAP) Pulse Ox O2 Delivery O2 Flow Rate FiO2 10/09/20 15:45 98.3 78 19 157/67 (97) 97 Room Air 98.3 EKG: EK-sinus rhythm, leftward axis, T abnormalities in high lateral leads, rate 82, no STEMI, read by Dr. Baker [] Heart Score: C/O Chest Pain: No Risk Scores: Score 0 - 3: 2.5% MACE over next 6 weeks - Discharge Home Score 4 - 6: 20.3% MACE over next 6 weeks - Admit for Clinical Observation Score 7 - 10: 72.7% MACE over next 6 weeks - Early Invasive Strategies Radiology/Procedures: Radiology/Procedures: PROCEDURE: CHEST AP ONLY AP chest. HISTORY: Fall AP view was taken of chest. Patient's taken a poor inspiration. Heart is normal in size. There is no pleural effusion. There are granulomatous calcifications. There are no confluent infiltrates. IMPRESSION: 1. Poor inspiration. 2. No acute infiltrates. Electronically signed by: Sylvester Navas MD (10/09/2020 4:27 PM) [facility] [] PROCEDURE: SHOULDER 2+V LEFT Left shoulder 3 views. HISTORY: Pain after a fall 3 views were taken of the left shoulder. There is not evidence of an acute fracture or osseous abnormality. There is no dislocation. IMPRESSION: 1. No fracture or dislocation noted in the left shoulder. Electronically signed by: Sylvester Navas MD (10/09/2020 4:29 PM) [facility] PROCEDURE: CT HEAD AND CERVICAL SPINE WO Exam performed: CT scan of the head and cervical spine without contrast. Date of Service:10/09/2020 Comparison: CT head and cervical spine without contrast from 01/29/2020. Clinical History: And neck pain status post fall Technique: Helical acquisitions are obtained from the foramen magnum to the vertex and through the cervical spine without IV contrast. Sagittal and coronal reformatted images are obtained and reviewed. CT head findings: The ventricles are midline without evidence of dilatation. There is atrophy. There are areas of low-attenuation in both periventricular and cortical white matter suggesting small vessel ischemic changes. Normal sanchez-white differentiation is maintained. There is no extra axial fluid collection, intraparenchymal hemorrhage or mass lesion. There is opacification of the left maxillary and ethmoid sinuses. The visualized portions of the orbits and the mastoid air cells appear clear. The calvarium is intact. Impression: 1. No acute intracranial process detected. 2. Left maxillary and ethmoid sinus disease. End impression CT cervical spine findings: There is generalized osteopenia. Grade 1 retrolisthesis of C2 over C3 and C5 over C6 is seen The vertebral body heights and intravertebral disc spaces are maintained. There is no nitin or retrolisthesis. No prevertebral soft tissue swelling is identified. There are no fractures. No definite lymphadenopathy or masses are seen within the neck. The visualized thyroid and salivary glands appears preserved. Impression: Generalized osteopenia and mild spondylotic changes. No acute abnormality seen in the CT scan cervical spine. PQRS Compliance Statement: One or more of the following individualized dose reduction techniques were utilized for this examination: 1. Automated exposure control 2. Adjustment of the mA and/or kV according to patient size 3. Use of iterative reconstruction technique End impression Exam performed: X-ray left humerus and one view chest HISTORY: Pain status post fall. DATE OF SERVICE: 10/09/2020. COMPARISON: None available FINDINGS: AP and lateral view of the right humerus demonstrates normal alignment of the visualized shoulder and elbow joint. There is no acute fracture or dislocation. No soft tissue swelling or foreign body seen. Single AP upright portable view of the chest demonstrates normal cardiac mediastinal silhouette. Pulmonary vascularity is unremarkable. There is calcified lymph node in the left hilum. Lungs are well-expanded and clear. No focal infiltrates, effusion or pneumothorax seen. Bones are normal. IMPRESSION: No acute abnormality seen in the left humerus. No acute cardiac pulmonary process detected. Course & Med Decision Making: Course & Med Decision Making Pertinent Labs and Imaging studies reviewed. (See chart for details) [] Dragon Disclaimer: Dragon Disclaimer: This electronic medical record was generated, in whole or in part, using a voice recognition dictation system. Departure Departure Impression: Primary Impression: Fall from standing Additional Impressions: Head pain Neck pain, acute Closed head injury without loss of consciousness Disposition: HOME / SELF CARE / HOMELESS Condition: STABLE Referrals: LILY SAM MD (PCP) Patient Instructions: Cervical Strain and Sprain with Rehab-SportsMed, Fall Prevention and Home Safety, [id number], Head Injury, Adult, [id number] Additional Instructions: Tylenol or ibuprofen as needed for pain. Follow the head injury precautions provided. Follow up with your primary care doctor in 1-2 days. Return to the ER if symptoms worsen. Problem Qualifiers Primary Impression: Fall from standing Encounter type: initial encounter Qualified Codes: W19.XXXA - Unspecified fall, initial encounter Additional Impressions: Head pain Headache type: unspecified Headache chronicity pattern: episodic headache Intractability: not intractable Qualified Codes: R51.9 - Headache, unspecified Closed head injury without loss of consciousness Encounter type: initial encounter Qualified Codes: S09.90XA - Unspecified injury of head, initial encounter ERICKA ZHAO DIRECTOR OF RADIOLOGY October 09, 2020 15:54
--- NOTE | 2020-10-09 16:29 | RAD ---
AP chest. HISTORY: Fall AP view was taken of chest. Patient's taken a poor inspiration. Heart is normal in size. There is no pleural effusion. There are granulomatous calcifications. There are no confluent infiltrates. IMPRESSION: 1. Poor inspiration. 2. No acute infiltrates. Electronically signed by: Sylvester Navas MD (10/09/2020 4:27 PM) [facility]
--- NOTE | 2020-10-09 16:31 | RAD ---
Left shoulder 3 views. HISTORY: Pain after a fall 3 views were taken of the left shoulder. There is not evidence of an acute fracture or osseous abnorm ality. There is no dislocation. IMPRESSION: 1. No fracture or dislocation noted in the left shoulder. Electronically signed by: Sylvester Navas MD (10/09/2020 4:29 PM) [facility]
--- NOTE | 2020-10-09 16:37 | RAD ---
Exam performed: CT scan of the head and cervical spine without contrast. Date of Service:10/09/2020 Comparison: CT head and cervical spine without contrast from 01/29/2020. Clinical History: And neck pain status post fall Technique: Helical acquisitions are obtained from the foramen magnum to the vertex and through the ce rvical spine without IV contrast. Sagittal and coronal reformatted images are obtained and reviewed . CT head findings: The ventricles are midline without evidence of dilatation. There is atrophy. There are areas of low-a ttenuation in both periventricular and cortical white matter suggesting small vessel ischemic changes . Normal sanchez-white differentiation is maintained. There is no extra axial fluid collection, intrapa renchymal hemorrhage or mass lesion. There is opacification of the left maxillary and ethmoid sinuses . The visualized portions of the orbits and the mastoid air cells appear clear. The calvarium is int act. Impression: 1. No acute intracranial process detected. 2. Left maxillary and ethmoid sinus disease. End impression CT cervical spine findings: There is generalized osteopenia. Grade 1 retrolisthesis of C2 over C3 and C5 over C6 is seen The vert ebral body heights and intravertebral disc spaces are maintained. There is no nitin or retrolisthes is. No prevertebral soft tissue swelling is identified. There are no fractures. No definite lymphad enopathy or masses are seen within the neck. The visualized thyroid and salivary glands appears pres erved. Impression: Generalized osteopenia and mild spondylotic changes. No acute abnormality seen in the CT scan cervical spine. PQRS Compliance Statement: One or more of the following individualized dose reduction techniques were utilized for this examinat ion: 1. Automated exposure control 2. Adjustment of the mA and/or kV according to patient size 3. Use of iterative reconstruction technique End impression Exam performed: X-ray left humerus and one view chest HISTORY: Pain status post fall. DATE OF SERVICE: 10/09/2020. COMPARISON: None available FINDINGS: AP and lateral view of the right humerus demonstrates normal alignment of the visualized shoulder and elbow joint. There is no acute fracture or dislocation. No soft tissue swelling or foreign body seen . Single AP upright portable view of the chest demonstrates normal cardiac mediastinal silhouette. Pulm onary vascularity is unremarkable. There is calcified lymph node in the left hilum. Lungs are well-ex panded and clear. No focal infiltrates, effusion or pneumothorax seen. Bones are normal. IMPRESSION: No acute abnormality seen in the left humerus. No acute cardiac pulmonary process detected. Electronically signed by: Kesha Cornell MD (10/09/2020 4:35 PM) [facility]
[2020-10-09 16:53] LABS: BASO % 1 % (0-3); EOS % 1 % (0-3); HEMOGLOBIN 13.4 g/dL (12.0-15.5); LYMPH % 20 % (24-48); MEAN CORPUSCULAR HEMOGLOBIN 31 pg (25-35); MEAN CORPUSCULAR HGB CONC 34 g/dL (31-37); MEAN CORPUSCULAR VOLUME 94 fL (79-100); MONO # 0.4 x10^3/uL (0.0-1.1); MONO % 7 % (0-9); NEUT # 3.6 x10^3/uL (1.8-7.7); NEUT % 72 % (31-73); PLATELET COUNT 138 x10^3/uL (140-400); RED BLOOD COUNT 4.27 x10^6/uL (3.50-5.40); RED CELL DISTRIBUTION WIDTH 12.8 % (11.5-14.5)
[2020-10-09 17:07] LABS: CALCIUM 8.8 mg/dL (8.5-10.1); CREATININE 0.7 mg/dL (0.6-1.0); GFR 80.7; POTASSIUM 4.1 mmol/L (3.5-5.1)
[2020-10-09 17:13] LABS: ALBUMIN 3.3 g/dL (3.4-5.0); ALBUMIN/GLOBULIN RATIO 1.3 (1.0-1.7); TOTAL BILIRUBIN 0.3 mg/dL (0.2-1.0); TOTAL PROTEIN 5.8 g/dL (6.4-8.2)
[2020-10-09 17:20] LABS: CREATINE KINASE 45 U/L (26-192)
--- NOTE | 2020-10-09 17:57 | EKG ---
[facility] [address] [place] [address] Test Date: 2020-10-09 Test Time: 16:28:56 Pat Name: LAUREN SALDAÑA Department: Room: Gender: F Energy Administrator: : 1940 Requested By: ERICKA ZHAO Order Number: [id number] Reading MD: Measurements Intervals [place] Rate: 82 P: 29 [place]: 168 QRS: -24 QRSD: 86 T: 68 QT: 378 QTc: 445 Interpretive Statements SINUS RHYTHM LEFTWARD AXIS T ABNORMALITY IN HIGH LATERAL LEADS ABNORMAL ECG RI6.02 No previous ECG available for comparison
[2020-10-09 18:42] VITALS: BP 169/77
== END 2020-10-09 18:44 | disposition home or self-care (01) ==
LOC: ER 14:59
DX: S09.90XA Unspecified injury of head, initial encounter (principal); R51.9 Headache, unspecified; M54.2 Cervicalgia; M25.512 Pain in left shoulder; M79.622 Pain in left upper arm; G30.9 Alzheimer's disease, unspecified; F02.80 Dementia in other diseases classified elsewhere, unspecified severity, without behavioral disturbance, psychotic disturbance, mood disturbance, and anxiety; Z88.6 Allergy status to analgesic agent; E11.9 Type 2 diabetes mellitus without complications; I10 Essential (primary) hypertension; I25.2 Old myocardial infarction; Z95.5 Presence of coronary angioplasty implant and graft; W18.39XA Other fall on same level, initial encounter; Y93.01 Activity, walking, marching and hiking; Y92.89 Other specified places as the place of occurrence of the external cause; Y99.8 Other external cause status
CPT/HCPCS: 36415; 70450; 71045; 72125; 73030; 73060; 80053; 82553; 83735; 84484; 85025; 93005; 99285-25

== ENCOUNTER → 2020-11-16 | Outpatient (CLI) | payer MEDICARE ==
[~2020-11-16] MED LIST changes: +REGADENOSON 0.4 MG/5 ML DISP.SYRIN. IV ONE
--- NOTE | 2020-11-16 19:45 | CARD ---
MR#: [id number] Date of Study: 11/16/2020 Ordering Physician: BAKARI METCALF, Referring Physician: BAKARI METCALF Tech: Tamie Bravo [facility] APPROVED REPORT EXAM: Two-dimensional and M-mode echocardiogram with Doppler and color Doppler. Other Information Quality : Technically LimitedHR: 83bpm Rhythm : NSR LEFT VENTRICLE The left ventricle is normal size. There is normal left ventricular wall thickness. The left ventricu lar systolic function is normal and the ejection fraction is within normal range. Estimated ejection fraction 50-55% MITRAL VALVE The mitral valve is normal in structure and function. GREAT VESSELS Not visualized. PERICARDIAL EFFUSION There is no evidence of significant pericardial effusion. Critical Notification Critical Value: No <Conclusion> The left ventricular systolic function is normal and the ejection fraction is within normal range. E stimated ejection fraction 50-55% Very limited images due to patient's dementia and inability to cooperate with exam. Consider repeat study if clinically indicated. Signed by : Emir Wu, Electronically Approved : 11/16/2020 19:45:01
--- NOTE | 2020-11-17 13:52 | RAD ---
MR#: [id number] Date of Study: 11/16/2020 Ordering Physician: BAKARI METCALF Referring Physician: LOLA VILLANUEVA Tech: JUAN Chen APPROVED REPORT Test Type: Pharmacological Stress Nurse/Tech: Stefani Mcfarland R.N. Test Indications: cad Cardiac History: CO, stent, dm, Medications: see ehr Medical History: see ehr Resting ECG: sr Resting Heart Rate: 77 bpm Resting Blood Pressure: 159/79mmHg Pretest Chest Pain: No chest pain Nurse/Tech Notes lungs cta, heart tones regular Consent: The procedure was explained to the patient in lay terms. Informed consent was witnessed. Steve eout was entered into [employer]. History and Stress Test performed by RT Taina (Sid) (N) Pharm. Details Pharmacologic stress testing was performed using 0.4mg per 5ml of regadenoson given intravenously ove r 7-10 seconds. Stress Symptoms No chest pain or symptoms. POST EXERCISE Reason for Termination: Infusion complete Target HR: No Max HR: 101 bpm Max Blood Pressure: 157/74mmHg Chest Pain: No. Arrhythmia: No. ST Change: No. INTERPRETATION Stress EKG Conclusion: No evidence of stress induced EKG changes. Imaging Protocol IMAGE PROTOCOL: Rest Tc-99m/stress Tc-99m 1 day Rest: Stress: Viability: Radiopharm.Tc99m AyulzgjacCv31v Sestamibi Wppn71rOx 32mCi Duration 15min. 10min. Img Date 11/16/2020 11/16/2020 Inj-Img [id number]. 60min. Rest Admin Site:IV - Right AntecubitalAdministrator:JUAN Chen Stress Admin Site: IV - Right AntecubitalAdministrator: RT Taina (Sid)(N) STRESS DATA End Diast. Vol.58.0mlAv. Heart Rate72.0bpm End Syst. Vol.14.0mlCO Index BSA0.0L/min Myocardial Bwcq506.0gEject. Uzfinkjm43.0% Stress Rates Pk. Fill Rate3.10EDV/secLVtime Pk. Fill 243.17msec Pk. Empty Rate3.95ESV/secLVtime Pk. Njfyk539.28msec /3 Pk. Fill0.85EDV/sec Stress Scores Regional WT2.00Summed WT6.00 Regional WM0.00Summed WM7.00 LV Perfusion There is a moderate to large size fixed mid to distal anterior wall and anteroseptal defect consisten t with prior infarct without any significant reversibility. Wall Motion There is mild hypokinesis in the anterior wall with a preserved ejection fraction of 70%. LV Perf. Quant 17 Seg. SSS11.00 17 Seg. SRS20.00 17 Seg. SDS2.00 Stress Defect Extent (% LAD)48.80Rest Defect Extent (% LAD)68.80Rev. Defect Extent (% LAD)12.50 Stress Defect Extent (% LCX) 0.00Rest Defect Extent (% LCX)33.80Rev. Defect Extent (% LCX)0.00 Stress Defect Extent (% RCA)0.00Rest Defect Extent (% RCA)36.70Rev. Defect Extent (% RCA)0.00 Stress Defect Extent (% RADHA)17.20Rest Defect Extent (% RADHA)53.50Rev. Defect Extent (% RADHA)4.30 Other Information Quality:Poor Risk Assessment: Moderate Risk Conclusion 1. No evidence of stress-induced EKG changes with vasodilator testing. 2. Moderate to large sized fixed anterior anteroseptal defect consistent with prior infarct without s ignificant arvind-infarct ischemia. 3. Normal LV function with ejection fraction of approximately 70% 4. Moderate risk for future cardiovascular events 5. Significant artifact is noted on resting images degrading the study quality. Signed by : Emir Wu, Electronically Approved : 11/17/2020 13:51:25
== END ==
LOC: NM 08:39
PROVIDERS: ATTEND Internal Medicine Cardiovascular Disease
DX: I25.10 Atherosclerotic heart disease of native coronary artery without angina pectoris (principal); I10 Essential (primary) hypertension; E11.9 Type 2 diabetes mellitus without complications; I25.2 Old myocardial infarction
CPT/HCPCS: 78452; 93017; 93308; A9500; J2785